=== PATIENT | female | born 1945 | race Caucasian/White ===

== ENCOUNTER 2019-05-02 12:58 | Emergency (ER) | payer OTHER ==
[~2019-05-02] VITALS: Ht 154.9 cm; Wt 76.2 kg
[2019-05-02 13:00] VITALS: BP_SYST 187
[2019-05-02] MEDS ORDERED: CYCLOBENZAPRINE HCL 10 MG TABLET (FLEXERIL) PO ONE (13:30)
[2019-05-02] MEDS ORDERED: IBUPROFEN 600 MG TABLET PO ONE (13:30)
[2019-05-02] MEDS ORDERED: HYDROcodone/ACETAMIN 5-325 MG TAB (NORCO/ VICODIN) PO ONE (14:15)
[2019-05-02 15:14] VITALS: BP_SYST 122
== END 2019-05-02 15:14 | disposition home or self-care (01) ==
LOC: SED 12:58
DX: S29.012A Strain of muscle and tendon of back wall of thorax, initial encounter (principal); E11.9 Type 2 diabetes mellitus without complications; I10 Essential (primary) hypertension; Z86.79 Personal history of other diseases of the circulatory system; X58.XXXA Exposure to other specified factors, initial encounter; Y93.89 Activity, other specified; Y92.89 Other specified places as the place of occurrence of the external cause; Y99.8 Other external cause status
CPT/HCPCS: 99284

== ENCOUNTER 2021-02-21 01:03 | Emergency (ER) | payer OTHER ==
[~2021-02-21] VITALS: Ht 154.9 cm; Wt 77.1 kg
[2021-02-21 01:06] VITALS: BP_SYST 187
[2021-02-21] MEDS ORDERED: ALBUTEROL SULFATE 0.083% 2.5 MG/3 ML VIAL.NEB INH ONE (01:30)
[2021-02-21] MEDS ORDERED: SERT25TA PO (01:44)
[2021-02-21] MEDS ORDERED: SIMV40TA2 PO (01:44)
[2021-02-21] MEDS ORDERED: GLIP10TA21 PO (01:44)
[2021-02-21] MEDS ORDERED: FURO-150 PO (01:44)
[2021-02-21] MEDS ORDERED: ISOS30TA85 PO (01:44)
[2021-02-21] MEDS ORDERED: AMLO10TA88 PO (01:44)
[2021-02-21] MEDS ORDERED: CARV25TA55 PO (01:44)
[2021-02-21] MEDS ORDERED: VITA-345 PO (01:44)
[2021-02-21] MEDS ORDERED: CLOP75TA32 PO (01:44)
[2021-02-21] MEDS ORDERED: FERR236T3 PO (01:44)
[2021-02-21] MEDS ORDERED: LOSA100T3 PO (01:44)
[2021-02-21] MEDS: ASPIRIN 325 MG TABLET PO ONE (01:52)
[2021-02-21 01:54] LABS: BASOPHILS # (AUTO) 0.1 K/uL (0.0-0.2); BASOPHILS % (AUTO) 0.5 % (0.0-2.0); EOSINOPHILS # (AUTO) 0.3 K/uL (0.0-0.4); EOSINOPHILS % (AUTO) 3.1 % (0.0-4.0); HEMOGLOBIN 9.7 g/dL (12.0-16.0); LYMPHOCYTES % (AUTO) 27.8 % (20.5-51.5); MEAN CORPUSCULAR HEMOGLOBIN 32 pg (27-31); MEAN CORPUSCULAR HGB CONC 34 % (32-36); MEAN CORPUSCULAR VOLUME 97 fL (79.0-98.0); MONOCYTES # (AUTO) 0.7 K/uL (0.0-1.0); MONOCYTES % (AUTO) 6.2 % (1.7-9.3); NEUTROPHILS # (AUTO) 6.7 K/uL (1.8-7.7); NEUTROPHILS % (AUTO) 62.4 % (40.0-70.0); PLATELET COUNT (AUTO) 274 K/uL (130-430); RED CELL DISTRIBUTION WIDTH 16.3 % (9.0-15.0); WHITE BLOOD COUNT (AUTO) 10.8 K/uL (4.8-10.8)
[2021-02-21 01:55] LABS: ANION GAP 12 (5-15); CALCIUM 8.3 mg/dL (8.4-11.0); CHLORIDE 107 mmol/L (98-107); CREATININE 4.07 mg/dL (0.55-1.30); GLUCOSE 159 mg/dL (70-99); POTASSIUM 4.4 mmol/L (3.5-5.1); SODIUM SERUM 141 mmol/L (136-145); UREA NITROGEN, BLOOD 64 mg/dL (8-21)
[2021-02-21 01:59] LABS: ALANINE AMINOTRANSFERASE 20 U/L (12-78); ALBUMIN 3.2 g/dL (3.4-4.8); ASPARTATE AMINOTRANSFERASE 14 U/L (10-37); TOTAL BILIRUBIN 0.3 mg/dL (0.0-1.0)
[2021-02-21] MEDS: ONDANSETRON HCL 4 MG/2 ML VIAL IVP ONE (02:01)
[2021-02-21] MEDS: NITROGLYCERIN 1 INCH (GM) OINT. TP ONE (02:06)
[2021-02-21] MEDS: MORPHINE 4 MG INJ. 4 MG/ML VIAL IVP ONE (02:07)
[2021-02-21 04:38] LABS: INR 0.9 (0.8-1.2); PROTHROMBIN TIME 9.4 SECS (9.5-12.5)
[2021-02-21] MEDS ORDERED: HEPARIN SODIUM,PORCINE 5,000 UNITS/ML VIAL ONE (05:00)
[2021-02-21] MEDS: HEPARIN SODIUM,PORCINE 5,000 UNITS/ML VIAL IVP ONE (05:13)
[2021-02-21] MEDS: MORPHINE 2 MG/ML INJ. SYRINGE IVP ONE (05:15)
[2021-02-21] MEDS: HEPARIN 25,000 UNITS/D5W 250ML 250 ML IV ONE (05:25)
[2021-02-21 08:55] VITALS: BP_SYST 177
== END 2021-02-21 08:14 ==
LOC: SED 01:03
DX: I20.0 Unstable angina (principal); I10 Essential (primary) hypertension; E11.9 Type 2 diabetes mellitus without complications; Z79.899 Other long term (current) drug therapy
CPT/HCPCS: 36415; 71045; 80053; 83880; 84484; 85025; 85610; 85730; 87426; 93005; 96365; 96366; 96375; 96376; 99291; J1644 ×2; J2270 ×2; J2405

== ENCOUNTER 2024-03-18 02:31 | Inpatient (IN) | payer OTHER ==
[~2024-03-18] VITALS: Ht 152.4 cm; Wt 61.2 kg
[2024-03-18] VITALS (9 sets, daily range): BP systolic 112–140; PULSE 79–91; RESP 16–20; TEMP 96.3–98.2; O2SAT 93–100
[~2024-03-18 02:31] MED LIST: AMLO10TA88 PO; ASA81 PO; BUME1TAB8 PO; CARV25TA55 PO; FERR236T3 PO; FOLI0.8T42 PO; GLIP10TA21 PO; HYDR25TA86 PO; ISOS30TA85 PO; LIP40 PO; LOSA25TA18 PO; SERT25TA PO
[2024-03-18] MEDS: methylPREDNISolone SOD SUCC/PF 62.5 MG/ML VIAL IVP ONE (03:35)
[2024-03-18 04:18] LABS: BASOPHILS % (AUTO) 0.4 % (0.0-2.0); EOSINOPHILS # (AUTO) 0.1 K/uL (0.0-0.4); EOSINOPHILS % (AUTO) 1.3 % (0.0-4.0); HEMATOCRIT 26.3 % (36-48); HEMOGLOBIN 8.7 g/dL (12.0-16.0); LYMPHOCYTES # (AUTO) 0.7 K/uL (1.0-5.5); LYMPHOCYTES % (AUTO) 8.5 % (20.5-51.5); MEAN CORPUSCULAR HEMOGLOBIN 31 pg (27-31); MEAN CORPUSCULAR HGB CONC 33 % (32-36); MEAN CORPUSCULAR VOLUME 94 fL (79.0-98.0); MONOCYTES # (AUTO) 0.3 K/uL (0.0-1.0); MONOCYTES % (AUTO) 3.8 % (1.7-9.3); PLATELET COUNT (AUTO) 299 K/uL (130-430); RED BLOOD CELL COUNT(AUTO) 2.81 MIL/uL (4.2-6.2); RED CELL DISTRIBUTION WIDTH 19.5 % (9.0-15.0); WHITE BLOOD COUNT (AUTO) 8.2 K/uL (4.8-10.8)
[2024-03-18 04:25] LABS: ALANINE AMINOTRANSFERASE 15 U/L (12-78); ALBUMIN 3.4 g/dL (3.4-4.8); ANION GAP 10 (5-15); ASPARTATE AMINOTRANSFERASE 21 U/L (10-37); CALCIUM 8.6 mg/dL (8.4-11.0); CARBON DIOXIDE 31 mmol/L (23-29); CHLORIDE 100 mmol/L (98-107); CREATININE 3.73 mg/dL (0.55-1.30); GLUCOSE 167 mg/dL (74-106); POTASSIUM 3.3 mmol/L (3.5-5.1); SODIUM SERUM 141 mmol/L (136-145); TOTAL BILIRUBIN 0.9 mg/dL (0.0-1.0); TOTAL PROTEIN, SERUM 7.4 g/dL (6.4-8.3); UREA NITROGEN, BLOOD 23 mg/dL (8-21)
[2024-03-18 04:27] LABS: BILIRUBIN,DIRECT 0.2 mg/dL (0.0-0.3)
[2024-03-18 04:43] LABS: INFLUENZA TYPE A Negative (NEGATIVE); INFLUENZA TYPE B NEGATIVE (NEGATIVE)
[2024-03-18] MEDS ORDERED: TICA90TA PO (04:47)
[2024-03-18] MEDS ORDERED: CALC667C4 PO (04:47)
[2024-03-18] MEDS ORDERED: AMLO2.5T2 PO (04:51)
[2024-03-18] MEDS ORDERED: CARV3.1246 PO (04:51)
[2024-03-18] MEDS ORDERED: cefTRIAXone 1 GM VIAL ONE (05:33)
[2024-03-18] MEDS ORDERED: AZITHROMYCIN 500 MG/VIAL (ZITHROMAX) IV ONE (05:34)
[2024-03-18] MEDS: cefTRIAXone 1 GM in D5W 50 ML IV ONE (05:36)
[2024-03-18] MEDS: AZITHROMYCIN 500 MG in NS 250 ML IV ONE (05:36)
[2024-03-18] MEDS ORDERED: VECURONIUM BROMIDE 10 MG/VIAL (NORCURON) ONE (08:20)
[2024-03-18] MEDS ORDERED: ETOMIDATE 20 MG/ 10 ML VIAL (AMIDATE) ONE (08:20)
[2024-03-18] MEDS ORDERED: NON-FORMULARY MEDICATION (Ferrous Gluconate (Iron) 65 MG) PO SCH (10:15)
[2024-03-18] MEDS ORDERED: ONDANSETRON HCL 4 MG/2 ML VIAL IVP PRN (10:15)
[2024-03-18] MEDS ORDERED: HYDROcodone/ACETAMIN 5-325 MG TAB (NORCO/ VICODIN) PO PRN (10:15)
[2024-03-18] MEDS ORDERED: BUMETANIDE 1 MG TABLET PO SCH (10:15)
[2024-03-18] MEDS ORDERED: ACETAMINOPHEN 325 MG TABLET PO PRN ×2 (10:15→11:00)
[2024-03-18] MEDS ORDERED: NALOXONE HCL 0.4 MG/ML AMP (NARCAN) IVP PRN ×2 (10:15)
[2024-03-18] MEDS ORDERED: HYDROcodone/ACETAMIN 10-325 MG TAB PO PRN (10:15)
[2024-03-18] MEDS: IPRATROPIUM BROM 0.5 MG/2.5 ML VIAL.NEB (ATROVENT) INH ONE (11:00)
[2024-03-18] MEDS: ALBUTEROL SULFATE 0.083% 2.5 MG/3 ML VIAL.NEB INH SCH (11:05)
[2024-03-18] MEDS: IPRATROPIUM BROM 0.5 MG/2.5 ML VIAL.NEB (ATROVENT) INH SCH (11:06)
[2024-03-18] MEDS: IPRATROPIUM/ALBUTEROL SULFATE 3 ML AMPUL.NEB (DUONEB) ONE (11:07)
[2024-03-18] MEDS: ALBUTEROL SULFATE 0.083% 2.5 MG/3 ML VIAL.NEB INH ONE (11:07)
[2024-03-18] MEDS: TICAGRELOR 90 MG TABLET PO ONE (13:00)
[2024-03-18] MEDS: CALCIUM ACETATE 667 MG CAP PO SCH (13:05)
[2024-03-18] MEDS: ISOSORBIDE MONONITRATE 30 MG TAB.ER.24H PO ONE (13:05)
[2024-03-18] MEDS: glipiZIDE XL 5 MG TAB ( GLUCOTROL XL) PO ONE (13:06)
[2024-03-18] MEDS: amLODIPine BESYLATE 5 MG TABLET PO ONE (13:06)
[2024-03-18] MEDS: NEPHROVITE, (FOLIC ACID/VITAMIN B COMP W-C 1 TAB) PO ONE (13:07)
[2024-03-18] MEDS: NORMAL SALINE 5 ML DISP.SYRIN IVF SCH (13:07)
[2024-03-18] MEDS: ASPIRIN 81 MG TAB.CHEW PO ONE (13:07)
[2024-03-18] MEDS: SERTRALINE HCL 50 MG TABLET PO ONE (13:07)
[2024-03-18] MEDS: BUMEX 1 MG/4 ML VIAL IVP ONE (13:08)
[2024-03-18] MEDS: INSULIN REGULAR, HUMAN 100 UNITS/ML, 3 ML VIAL (humuLIN R) SUBCUT PRN (13:10)
[2024-03-18] MEDS: ATORVASTATIN 20 MG TABLET PO SCH (20:56)
[2024-03-18] MEDS: CARVEDILOL 3.125 MG TABLET (COREG) PO SCH (20:56)
[2024-03-19] VITALS (20 sets, daily range): BP systolic 92–182; PULSE 74–145; RESP 16–37; TEMP 96.2–98.2; O2SAT 88–100
[2024-03-19 05:43] LABS: BASOPHILS % (AUTO) 0.1 % (0.0-2.0); EOSINOPHILS # (AUTO) 0.1 K/uL (0.0-0.4); EOSINOPHILS % (AUTO) 0.6 % (0.0-4.0); HEMATOCRIT 23.6 % (36-48); HEMOGLOBIN 7.8 g/dL (12.0-16.0); LYMPHOCYTES # (AUTO) 1.1 K/uL (1.0-5.5); LYMPHOCYTES % (AUTO) 10.3 % (20.5-51.5); MEAN CORPUSCULAR HEMOGLOBIN 32 pg (27-31); MEAN CORPUSCULAR HGB CONC 33 % (32-36); MEAN CORPUSCULAR VOLUME 95 fL (79.0-98.0); MONOCYTES # (AUTO) 0.7 K/uL (0.0-1.0); MONOCYTES % (AUTO) 7.1 % (1.7-9.3); NEUTROPHILS # (AUTO) 8.6 K/uL (1.8-7.7); NEUTROPHILS % (AUTO) 81.9 % (40.0-70.0); PLATELET COUNT (AUTO) 266 K/uL (130-430); RED BLOOD CELL COUNT(AUTO) 2.49 MIL/uL (4.2-6.2); WHITE BLOOD COUNT (AUTO) 10.4 K/uL (4.8-10.8)
[2024-03-19 06:15] LABS: ALANINE AMINOTRANSFERASE 13 U/L (12-78); ALBUMIN 3.1 g/dL (3.4-4.8); ANION GAP 8 (5-15); ASPARTATE AMINOTRANSFERASE 12 U/L (10-37); CALCIUM 8.8 mg/dL (8.4-11.0); CARBON DIOXIDE 31 mmol/L (23-29); CHLORIDE 102 mmol/L (98-107); CREATININE 4.95 mg/dL (0.55-1.30); GLUCOSE 100 mg/dL (74-106); PHOSPHORUS 5.3 mg/dL (2.7-4.5); POTASSIUM 3.3 mmol/L (3.5-5.1); SODIUM SERUM 141 mmol/L (136-145); TOTAL BILIRUBIN 0.5 mg/dL (0.0-1.0); TOTAL PROTEIN, SERUM 6.6 g/dL (6.4-8.3); UREA NITROGEN, BLOOD 43 mg/dL (8-21)
[2024-03-19] MEDS: amLODIPine BESYLATE 5 MG TABLET PO SCH (09:00)
[2024-03-19] MEDS: ISOSORBIDE MONONITRATE 30 MG TAB.ER.24H PO SCH (09:00)
[2024-03-19] MEDS: SERTRALINE HCL 50 MG TABLET PO SCH (09:13)
[2024-03-19] MEDS: NEPHROVITE, (FOLIC ACID/VITAMIN B COMP W-C 1 TAB) PO SCH (09:13)
[2024-03-19] MEDS: cefTRIAXone 1 GM IVPB PREMIX 50 ML IV SCH (09:13)
[2024-03-19] MEDS: ASPIRIN 81 MG TAB.CHEW PO SCH (09:13)
[2024-03-19] MEDS: BUMEX 1 MG/4 ML VIAL IVP SCH (09:13)
[2024-03-19] MEDS: glipiZIDE XL 5 MG TAB ( GLUCOTROL XL) PO SCH (09:14)
[2024-03-19] MEDS: TICAGRELOR 90 MG TABLET PO SCH (09:16)
[2024-03-19] MEDS: POTASSIUM CHLORIDE 20 MEQ TABLET.ER PO ONE (11:38)
[2024-03-19] MEDS: LORazepam 2 MG/ML VIAL IVP PRN (17:31)
[2024-03-19] MEDS: FUROSEMIDE 40 MG/4 ML VIAL ONE (19:14)
[2024-03-19] MEDS: FUROSEMIDE 40 MG/4 ML VIAL IVP ONE (19:15)
[2024-03-19 19:56] LABS: BLOOD GAS BASE EXCESS -2.5 mmol/L (-2.0-3.0); BLOOD GAS HCO3 24.5 mmol/L (21.0-28.0); BLOOD GAS PCO2 53.2 mmHg (32.0-45.0); BLOOD GAS PH 7.282 (7.350-7.450); BLOOD GAS PO2 78.6 mmHg (83.0-108.0)
[2024-03-20] VITALS (38 sets, daily range): BP systolic 98–136; PULSE 72–100; RESP 20–24; TEMP 97.5–99.3; O2SAT 96–100
[2024-03-20] MEDS: NITROGLYCERIN 1 INCH (GM) OINT. TP SCH
[2024-03-20 05:07] LABS: ERYTHROCYTE SEDIMENTATION RATE 31 MM/HR (0-20)
[2024-03-20 05:17] LABS: BASOPHILS % (AUTO) 0.2 % (0.0-2.0); EOSINOPHILS # (AUTO) 0.1 K/uL (0.0-0.4); EOSINOPHILS % (AUTO) 0.4 % (0.0-4.0); HEMATOCRIT 24.7 % (36-48); HEMOGLOBIN 8.1 g/dL (12.0-16.0); LYMPHOCYTES # (AUTO) 0.9 K/uL (1.0-5.5); LYMPHOCYTES % (AUTO) 7.2 % (20.5-51.5); MEAN CORPUSCULAR HEMOGLOBIN 32 pg (27-31); MEAN CORPUSCULAR HGB CONC 33 % (32-36); MEAN CORPUSCULAR VOLUME 97 fL (79.0-98.0); MONOCYTES # (AUTO) 0.7 K/uL (0.0-1.0); MONOCYTES % (AUTO) 5.4 % (1.7-9.3); NEUTROPHILS # (AUTO) 10.9 K/uL (1.8-7.7); NEUTROPHILS % (AUTO) 86.8 % (40.0-70.0); PLATELET COUNT (AUTO) 256 K/uL (130-430); RED BLOOD CELL COUNT(AUTO) 2.54 MIL/uL (4.2-6.2); RED CELL DISTRIBUTION WIDTH 19.3 % (9.0-15.0); WHITE BLOOD COUNT (AUTO) 12.5 K/uL (4.8-10.8)
[2024-03-20 05:44] LABS: ANION GAP 13 (5-15); CALCIUM 8.2 mg/dL (8.4-11.0); CARBON DIOXIDE 26 mmol/L (23-29); CHLORIDE 101 mmol/L (98-107); CREATININE 3.73 mg/dL (0.55-1.30); GLUCOSE 86 mg/dL (74-106); PHOSPHORUS 3.2 mg/dL (2.7-4.5); POTASSIUM 3.7 mmol/L (3.5-5.1); SODIUM SERUM 140 mmol/L (136-145); UREA NITROGEN, BLOOD 37 mg/dL (8-21)
[2024-03-20] MEDS: BUMEX 1 MG/4 ML VIAL ONE (08:43)
[2024-03-20] MEDS: HEPARIN SODIUM,PORCINE 5,000 UNITS/ML VIAL SUBCUT SCH (13:57)
[2024-03-20] MEDS: ALBUMIN HUMAN 25% 200 ML IV ONE (18:12)
[2024-03-20] MEDS: DOXYCYCLINE HYCLATE 100 MG in D5W 100 ML IV SCH (20:52)
[2024-03-20] MEDS: PIPERACILLIN/TAZO 3.375 GM in D5W 50 ML IV SCH (20:53)
[2024-03-21] VITALS (29 sets, daily range): BP systolic 90–129; PULSE 68–89; RESP 22–26; TEMP 97.6–101.4; O2SAT 97–100
[2024-03-21 06:32] LABS: BASOPHILS % (AUTO) 0.2 % (0.0-2.0); EOSINOPHILS # (AUTO) 0.2 K/uL (0.0-0.4); EOSINOPHILS % (AUTO) 1.5 % (0.0-4.0); HEMATOCRIT 22.1 % (36-48); HEMOGLOBIN 7.4 g/dL (12.0-16.0); LYMPHOCYTES # (AUTO) 0.7 K/uL (1.0-5.5); LYMPHOCYTES % (AUTO) 6.4 % (20.5-51.5); MEAN CORPUSCULAR HEMOGLOBIN 33 pg (27-31); MEAN CORPUSCULAR HGB CONC 34 % (32-36); MEAN CORPUSCULAR VOLUME 97 fL (79.0-98.0); MONOCYTES # (AUTO) 0.7 K/uL (0.0-1.0); MONOCYTES % (AUTO) 7.2 % (1.7-9.3); NEUTROPHILS # (AUTO) 8.6 K/uL (1.8-7.7); NEUTROPHILS % (AUTO) 84.7 % (40.0-70.0); PLATELET COUNT (AUTO) 233 K/uL (130-430); RED BLOOD CELL COUNT(AUTO) 2.29 MIL/uL (4.2-6.2); RED CELL DISTRIBUTION WIDTH 19.7 % (9.0-15.0); WHITE BLOOD COUNT (AUTO) 10.1 K/uL (4.8-10.8)
[2024-03-21 06:44] LABS: ALANINE AMINOTRANSFERASE 15 U/L (12-78); ALBUMIN 3.7 g/dL (3.4-4.8); ANION GAP 13 (5-15); ASPARTATE AMINOTRANSFERASE 15 U/L (10-37); CALCIUM 9.2 mg/dL (8.4-11.0); CARBON DIOXIDE 28 mmol/L (23-29); CHLORIDE 98 mmol/L (98-107); CREATININE 3.06 mg/dL (0.55-1.30); GLUCOSE 103 mg/dL (74-106); POTASSIUM 3.7 mmol/L (3.5-5.1); SODIUM SERUM 139 mmol/L (136-145); TOTAL BILIRUBIN 1.5 mg/dL (0.0-1.0); UREA NITROGEN, BLOOD 30 mg/dL (8-21)
[2024-03-21 08:01] LABS: ERYTHROCYTE SEDIMENTATION RATE 25 MM/HR (0-20)
[2024-03-21] MEDS: ACETAMINOPHEN 325 MG TABLET NG PRN (10:42)
== END 2024-03-21 19:15 | disposition short-term general hospital (02) | DRG 208 ==
LOC: SED 02:31 → STU 07:25 → SIC 03-19 18:20
PROVIDERS: ADMIT Preventive Medicine Preventive Medicine/Occupational Environmental Medicine; ATTEND Preventive Medicine Preventive Medicine/Occupational Environmental Medicine
PROC: 5A1945Z Respiratory Ventilation, 24-96 Consecutive Hours (ICD-10-PCS; principal; 2024-03-19)
PROC: 0BH17EZ Insertion of Endotracheal Airway into Trachea, Via Natural or Artificial Opening (ICD-10-PCS; 2024-03-19)
PROC: 5A1D70Z Performance of Urinary Filtration, Intermittent, Less than 6 Hours Per Day (ICD-10-PCS; 2024-03-19)
PROC: 5A1D70Z Performance of Urinary Filtration, Intermittent, Less than 6 Hours Per Day (ICD-10-PCS; 2024-03-20)
DX: J96.01 Acute respiratory failure with hypoxia (principal); J18.9 Pneumonia, unspecified organism; N18.6 End stage renal disease; R65.11 Systemic inflammatory response syndrome (SIRS) of non-infectious origin with acute organ dysfunction; J45.901 Unspecified asthma with (acute) exacerbation; Z99.11 Dependence on respirator [ventilator] status; N17.9 Acute kidney failure, unspecified; I13.2 Hypertensive heart and chronic kidney disease with heart failure and with stage 5 chronic kidney disease, or end stage renal disease; Z20.822 Contact with and (suspected) exposure to COVID-19; E78.00 Pure hypercholesterolemia, unspecified; I25.10 Atherosclerotic heart disease of native coronary artery without angina pectoris; E87.70 Fluid overload, unspecified; D63.1 Anemia in chronic kidney disease; E83.51 Hypocalcemia; R13.10 Dysphagia, unspecified; E87.6 Hypokalemia; E83.39 Other disorders of phosphorus metabolism; E88.09 Other disorders of plasma-protein metabolism, not elsewhere classified; D72.829 Elevated white blood cell count, unspecified; E11.22 Type 2 diabetes mellitus with diabetic chronic kidney disease; I50.9 Heart failure, unspecified; I25.2 Old myocardial infarction; Z99.2 Dependence on renal dialysis; E78.5 Hyperlipidemia, unspecified
CPT/HCPCS: 36415; 36600; 71045; 80048; 80053; 80076; 82803; 82948; 83735; 83880; 84100; 84484; 85025; 85651; 87040; 87070; 87081; 87205; 90935; 90937; 93005; 93306; 94002; 94003; 94640; 94760; 99291; G0378; J0456; J0696; J1644; J1940; J2060; J2543; J2930; J3490; J7030; J7050; J7060